=== PATIENT | male | born 1970 | race Caucasian/White ===

== ENCOUNTER 2019-07-19 08:43 | Day surgery (SDC) | payer OTHER, SELFPAY ==
[2019-07-19 09:09] VITALS: BP 121/76; PULSE 80; RESP 15; TEMP 37; O2SAT 100; BMI 25.7
[2019-07-19] MEDS: Lactated Ringers 1,000 ML 100 ML IV (09:19)
--- NOTE | 2019-07-19 09:45 | COLBX_PTH ---
PATIENT: CHARLI VALENCIA LOC: EN U#:[id number] AGE/SX: 48/M ROOM: RE07/19/[address]: Dr. Tejas Baeza MD : 1970 BED: DIS: 07/19/2019 SPEC #: [id number] RECD: 07/19/19 12:22 STATUS: MICHAEL KAMARI #: [id number] SHANTA: 07/19/19 09:[address]: Tejas Baeza DEPT: SURGICAL PATHOLOGY RECD BY: Vincent Rendon ENTERED: 07/22/19 11:33 SP TYPE: COLON BX OTHR DR: No Primary Care Phys Tissues: Transverse colon Procedures: Surgery Specimen Level IV HEADER OPERATION: Colonoscopy - open access (MAC) PRE-OP DIAGNOSIS: Screening TISSUE SUBMITTED: Transverse colon polyp MICROSCOPIC DIAGNOSIS Transverse colon polyp, biopsy: Hyperplastic polyp. SJ:nam 07/23/19 COMMENT Case has been reviewed in consultation with Dr. Marques who concurs with the above diagnosis. IDC:AM MICROSCOPIC DESCRIPTION Slides are reviewed. GROSS DESCRIPTION Received in fixative is one container labeled with the patient's name and designated transverse colon polyp. The specimen consists of one irregular fragment of light ramirez soft tissue that measures 0.4 x 0.4 x 0.3 cm. The specimen is totally submitted in one cassette. / SJ:nam 07/22/19 TC:3 CPT: 88337
--- NOTE | 2019-07-19 09:59 | H&P.OPEN ---
History of Present Illness Date of Admission: 07/19/19 The patient is a 48 year old M here for screening colonoscopy. The patient reports he is having no abdominal pain or blood in his stool. He has never had a colonoscopy in the past. He reports no family history of colon cancer but he does state that his father had colon polyps. Past Medical/Surgical History - Planned Operation Planned Operative Procedure/s: cscope open access Date of Operative Procedure: 07/19/19 Permit Signed: No S.O.S: No Is This Patient Having a Total Joint: No - Previous Hospitalizations/Surgeries HX Hospitalizations: No HX of Surgeries: hernia repair Any Problems With Anesthesia: No You/Your Family Experience Fever (Hyperthermia) With Anes: No Cholinesterase deficiency: No - Cardiovascular Hx Chest Pain within Last 2 months: No Hx of Irregular Heartbeat and/or Afib: No Hx Heart Attack: No Hx Congestive Heart Failure: No Hx Rheumatic Fever: No Hx Hypertension: No Hx Internal Defibrillator: No Hx Pacemaker: No Hx Cardiac Catheterization: No Hx Cardiac Surgery/Stents/Etc.: No Hx Stress Test: No HX Edema: No Hx Pain in Legs when Walking/Leg Cramps: No - Respiratory Chronic Cough: No HX of Shortness of Breath: No Hoarseness: No Hx Chronic Obstructive Pulmonary Disease (COPD): No Hx Asthma: No Hx Emphysema: No Hx Sleep Apnea: No Hx Oxygen Use at Home: No Hx Respiratory Tract Infection/Cold (presently): No Do You Snore Loudly (louder than talking or can be heard): No Do You Often Feel Tired/ Fatigued/ Sleepy Dring Daytime?: No Has Anyone Observed You Stop Breathing During Sleep?: No Result (for STOP score): Negative Hx Smoking: No Smoking Status: Never smoker - Gastrointestinal Hx Gastroesophageal Reflux: No Hx Gastrointestinal Disorders: No Hx Gastrointestinal Bleed: No Hx Ulcer: No Hx Hiatal Hernia: No Difficulty Chewing/Swallowing: No Recent Onset of Swallowing Problems: No Special diet followed at home: No Hx Unplanned Weight Loss of 20#: No HX Unplanned Weight Gain of 20#: No - Neurological Hx Seizures: No HX Syncope/Blackout Spells/Unconsciousness: No Hx CVA/Stroke: No Hx Transient Ischemic Attacks (TIA): No Hx Multiple Sclerosis: No Hx Parkinson's Disease: No Hx Head/Neck Injury: No Hx Headaches: No Hx Back Injury/Pain: No Recent Onset of Speech Difficulty: No Restless Legs: No Does patient have nerve stimulator: No Patient instructed to have device shut off: No Rep notified?: No - Blood Disorder Hx Leukemia: No Bleeding Tendencies: No Hx Deep Vein Thrombosis: No Hx High Cholesterol: No Blood Transmitted Disease: No Hx Hepatitis: No Hx Cirrhosis: No Hx Anemia: No Hx Blood Disorders: No - Genitourinary Hx Renal Disease: No - Musculoskeletal Hx Arthritis: No Hx Rheumatoid Arthritis: No Hx Gout: No Recent Onset of an Orthopedic Problem: No - Endocrine Hx Diabetes: No Thyroid Disease: No Hx Steroid Therapy: No - Psycho/Social Hx Substance Use: No Hx Alcohol Use: Yes - occ Hx Anxiety: No Hx Depression: No Mental Illness: No Hx Dementia: No - Miscellaneous Hx Cancer: No Recent Exposure to Contagious Disease: No Active MRSA: No Hx of C-Diff: No Any Loose Teeth: No Allergies No Known Allergies Allergy (Verified 07/19/19 09:07) - Discharge Is Pt Admitted From a Correction, or a Half-Way: No Who Could Help: family After D/C, Where Do you Plan to Go: Return Home - Physical Exam Vitals/I&O's: Vital Signs Temp Pulse Resp BP Pulse Ox 98.6 F 80 15 121/76 H 100 07/19/19 09:09 07/19/19 09:09 07/19/19 09:09 07/19/19 09:09 07/19/19 09:09 Oxygen Delivery Method Room Air Weight: 154 lb 5.177 oz Body Mass Index (BMI) 25.7 General: Alert, Oriented x3 Lungs: Normal air movement, No rhonchi Cardiovascular: Regular rate, Regular Rhythm Abdomen: Soft, Non Tender, Non-Distended Microbiology Past 72 Hours 07/18/19 12:05 Mucosa - Nasopharyngeal Coronavirus COVID-19 PCR - Final Laboratory Results 07/18/19 12:05: COVID-19 (BELINDA) Cancelled Current Medications Lactated Ringer's () 1,000 mls @ 100 mls/hr IV .Q10H ALAN Last Admin: 07/19/19 09:19 Dose: 100 mls/hr Documented by: Assessment/Plan 48-year-old male for screening colonoscopy 1. I explained endoscopy in detail to the patient. I explained the risks including but not limited to stroke or heart attack with anesthesia, perforation of the GI tract, bleeding, infection. I explained that any of these could necessitate further emergency surgery. The patient understands and all questions were answered sufficiently. The patient wishes to proceed with procedure. 2. We discussed the current risks associated with COVID-19. While it is understood that there is a community spread of COVID-19, the risk of reena COVID-19 while at [facility] ([facility]) is very low; however, the risk cannot be completely mitigated because of the community spread of the disease. We discussed in detail the risk of exposure to and/or potential harm posed by the COVID-19 virus with having a surgery/procedure at this time versus the risk of delaying the surgery/procedure. It is not possible to know either the risk of delaying the surgery or procedure or chance of getting an infection with perfect accuracy, but a joint decision was made to proceed at this time with the scheduled surgery/procedure as indicated on the consent form. Patient was notified that we will need to comply with any screening or testing [facility] wishes to perform or that surgery may be delayed for any positive results. Tejas Baeza MD Pager: [facility] [address] [place] [address], [address] [place] [address] Office: Surgery Risks - Colonoscopy Risks Include but are not Limited To: Risks include but are not limited to: Bleeding, perforation requiring further surgery, inability to complete colonoscopy requiring barium enema.
--- NOTE | 2019-07-19 10:35 | OP.CCLET_ITS ---
07/19/2019 No Primary Care Physician Re : Colonoscopy procedure for Oneal Rojas Dear Care Physician This procedure was performed on Friday, July 19, 2019. My impressions and recommendations are as follows: Impressions : - One polyp in the distal transverse colon, removed with a hot snare. Resected and retrieved. - The examination was otherwise normal on direct and retroflexion views. Recommendations : - Discharge patient to home. - Resume previous diet. - Continue present medications. - Await pathology results. - Repeat colonoscopy in 5 years for surveillance. My findings are described in the full procedure note, which is enclosed. If I can be of further assistance, please feel free to contact me at Doctor phone number(s): , Work: . Sincerely, Tejas Baeza MD 07/19/2019 10:35:13 AM This report has been signed electronically.
--- NOTE | 2019-07-19 10:35 | OP.COLON_ITS ---
Patient Name: Oneal Rojas Procedure Date: 07/19/2019 10:12 AM Date of : 1970 Age: 48 Procedure: Colonoscopy Indications: Screening for colorectal malignant neoplasm Providers: Tejas Baeza MD Referring MD: No Primary Care Physician Medicines: Monitored Anesthesia Care Patient Profile: This is a 48 year old male. Refer to note in patient chart for documentation of history and physical. Last Colonoscopy: none. The patient's first colonoscopy is today. Complications: No immediate complications. Estimated blood loss: Minimal. Procedure: Pre-Anesthesia Assessment: - Prior to the procedure, a History and Physical was performed, and patient medications and allergies were reviewed. The patient's tolerance of previous anesthesia was also reviewed. The risks and benefits of the procedure and the sedation options and risks were discussed with the patient. All questions were answered, and informed consent was obtained. Prior Anticoagulants: The patient has taken no previous anticoagulant or antiplatelet agents. After reviewing the risks and benefits, the patient was deemed in satisfactory condition to undergo the procedure. After I obtained informed consent, the scope was passed under direct vision. Throughout the procedure, the patient's blood pressure, pulse, and oxygen saturations were monitored continuously. The pediatric colonoscope was introduced through the anus and advanced to the cecum, identified by appendiceal orifice and ileocecal valve. The colonoscopy was performed without difficulty. The patient tolerated the procedure well. The quality of the bowel preparation was good. Scope In: 10:20:22 AM Scope Withdrawal Time 0 hours 8 minutes 14 seconds Scope Out: 10:31:47 AM Total Procedure Duration Time 0 hours 11 minutes 25 seconds Findings: A polyp was found in the distal transverse colon. The polyp was semi-pedunculated. The polyp was removed with a hot snare. Resection and retrieval were complete. The exam was otherwise without abnormality on direct and retroflexion views. Impression: - One polyp in the distal transverse colon, removed with a hot snare. Resected and retrieved. - The examination was otherwise normal on direct and retroflexion views. Recommendation: - Discharge patient to home. - Resume previous diet. - Continue present medications. - Await pathology results. - Repeat colonoscopy in 5 years for surveillance. Procedure Code(s): --- Professional --- 38902, Colonoscopy, flexible; with removal of tumor(s), polyp(s), or other lesion(s) by snare technique Diagnosis Code(s): --- Professional --- Z12.11, Encounter for screening for malignant neoplasm of colon D12.3, Benign neoplasm of transverse colon (hepatic flexure or splenic flexure) CPT copyright 2017 [employer]. All rights reserved. The codes documented in this report are preliminary and upon credit officer review may be revised to meet current compliance requirements. Tejas Baeza MD 07/19/2019 10:35:13 AM This report has been signed electronically. Number of Addenda: 0 Note Initiated On: 07/19/2019 10:12 AM
[2019-07-19 10:36] VITALS: BP 104/73; BP 121/76; PULSE 84; RESP 16; TEMP 36.2; O2SAT 100
[2019-07-19 10:40] VITALS: BP 106/74; BP 121/76; PULSE 79; RESP 16; O2SAT 99
[2019-07-19 10:45] VITALS: BP 118/76; BP 121/76; PULSE 69; RESP 16; O2SAT 99
[2019-07-19 10:47] VITALS: BP 112/75; BP 121/76; PULSE 68; RESP 16; TEMP 37; O2SAT 100
[2019-07-19 11:16] VITALS: BP 121/76
== END 2019-07-19 11:18 | disposition home or self-care (01) ==
LOC: EN 08:46 → AC 08:48
PROVIDERS: Visit Provider Surgery
PROC: 0DJD8ZZ Inspection of Lower Intestinal Tract, Via Natural or Artificial Opening Endoscopic (ICD-10-PCS; CPT 45378; principal; 2019-07-19 09:40)
DX: Z12.11 Encounter for screening for malignant neoplasm of colon (principal); D12.3 Benign neoplasm of transverse colon; Z83.71 Family history of colonic polyps; Z11.59 Encounter for screening for other viral diseases
CPT/HCPCS: 45385; 87635; 88305; G2023; J7120; J2405; U0002